=== PATIENT | female | born 1995 | race Caucasian/White ===

== ENCOUNTER 2022-03-21 10:19 | Outpatient (CLI) | payer OTHER ==
[2022-03-21 13:12] LABS: THYROID STIMULATING HORMONE 1.22 uIU/mL (0.34-5.60)
== END 2022-03-21 10:20 | disposition home or self-care (01) ==
LOC: LAB.N 10:19
PROVIDERS: ATTEND Nurse Practitioner Obstetrics & Gynecology
DX: E03.9 Hypothyroidism, unspecified (principal)
CPT/HCPCS: 36415; 84439; 84443

== ENCOUNTER 2022-05-16 11:03 | Outpatient (CLI) | payer OTHER ==
[2022-05-16 18:47] LABS: THYROID STIMULATING HORMONE 1.48 uIU/mL (0.34-5.60)
[2022-05-16 18:49] LABS: FREE T4 (FREE THYROXINE) 0.88 ng/dL (0.58-1.64)
[2022-05-18 20:08] LABS: AFP MOM 0.93 (.); AFP VALUE 33.5 ng/mL (.); DIA MOM 0.77 (.); DIA VALUE 130.3 pg/mL (.); DOWN SYNDROME Screening Risk: (.); GESTATIONAL AGE 10.7 weeks (.); GESTATIONAL AGE 16.1 weeks (.); GESTATIONAL AGE METHOD EDD (.); HCG MOM 0.84 (.); HCG VALUE 33.5 IU/mL (.); INSULIN DEP DIABETES No (.); MATERNAL AGE AT EDD 28.7 yr (.); NUMBER OF FETUSES 1 (.); OPEN SPINA BIFIDA Screening Risk: (.); PAPP-A MOM 2.34 (.); PAPP-A VALUE 1206.1 ng/mL (.); RACE Caucasian (.); TEST RESULTS *Screen Negative* (.); TRISOMY 18 Screening Risk: (.); UE3 MOM 0.91 (.); UE3 VALUE 0.92 ng/mL (.); WEIGHT 135 lbs (.)
== END 2022-05-16 11:04 | disposition home or self-care (01) ==
LOC: LAB.N 11:03
PROVIDERS: ATTEND Nurse Practitioner Obstetrics & Gynecology
DX: Z13.79 Encounter for other screening for genetic and chromosomal anomalies (principal)
CPT/HCPCS: 36415; 82105; 82677; 84439; 84443; 84702; 86336

== ENCOUNTER 2022-06-17 15:20 | Outpatient (CLI) | payer OTHER ==
--- NOTE | 2022-06-18 03:24 | Ultrasound Report ---
PROCEDURE: OB Detailed Eval INDICATIONS: SUPERVISION OF OUTSIDE/PRIOR DATING DATA: Last menstrual period (LMP): 01/23/2022. LMP-based estimated date of delivery (ANSELMO): 10/30/2022. First dating scan (date and location): 03/30/2022. Estimated date of delivery (ANSELMO) from first dating scan: 10/30/2022. The below data below was generated using the working ANSELMO of 10/30/2022 TECHNIQUE: Real-time scanning was performed of the fetus, with image documentation and biometric measurements. COMPARISON: None available. FINDINGS: General: A single living intrauterine gestation is present. Presentation: Breech Placenta: Placental position is anterior with the inferior margin approximately 1 cm from the internet technology manager al cervical os compatible with a low-lying placenta. Amniotic fluid index: 15.2 cm, 60th percentile for gestational age. Largest pocket: 4.6 cm. heart rate: heart motion demonstrated with heart rate not obtained. Maternal cervical canal: 4.3 cm long; normal length is 2.5 cm or more. No endocervical fluid identi fied. biometrics: Biparietal diameter: 4.5 cm, 19 weeks 5 days Head circumference: 17.3 cm, 19 weeks 6 days Abdominal circumference: 16.1 cm, 21 weeks 1 day Femur length: 3.1 cm, 19 weeks 4 days Estimated gestational age from initial scan: 20 weeks 1 day. Composite gestational age from present scan: 20 weeks 0 days Estimated weight and percentile: 15 48 g, 57th percentile Measurement variability in biometric dating: +/- 10 days from 12-20 weeks gestation, +/- 2 weeks from 20-30 weeks gestation, +/- 3 weeks at 30 weeks gestation or later. Anatomic survey: Neuro: Ventricles are normal at less than 10 mm. Cisterna magna is normal at 3-11 mm. Cerebellum i s normal in size and morphology. Nuchal skin fold: Normal at less than 6 mm between 14 and 20 weeks gestational age. Face: Nose and lips, facial profile are normal. Spine: No evidence for spina bifida. Heart: 4-chambered heart is present, with normal ventricular outflow tracts. Diaphragm: Diaphragm is intact. Stomach: Left-sided stomach is present. Kidneys: No hydronephrosis. Normal is less than 5 mm in 2nd trimester, less than 7 mm in 3rd trimester. Cord: 3 vessel cord has orthotopic insertion. Bladder: Normal in size. Extremities: All 4 extremities are visualized. IMPRESSION: 1. Single living intrauterine demonstrating interval growth with estimated weight at the 57th percentile. 2. No definite abnormalities identified on anatomic survey. 3. heart rate not documented at time of examination. If clinically indicated, a repeat study ma y be performed. Reviewed by: Dante Joseph MD on 06/18/2022 3:23 AM PST Approved by: Dante Joseph MD on 06/18/2022 3:23 AM PST Station ID: [id number]
== END 2022-06-17 15:21 | disposition home or self-care (01) ==
LOC: DI 15:20
PROVIDERS: ATTEND Nurse Practitioner Obstetrics & Gynecology
DX: Z34.02 Encounter for supervision of normal first pregnancy, second trimester (principal); Z36.89 Encounter for other specified antenatal screening

== ENCOUNTER 2022-06-18 14:34 | Outpatient (CLI) | payer OTHER ==
[2022-06-18 19:37] LABS: FREE T3 3.24 pg/mL (2.5-3.9); THYROID STIMULATING HORMONE 0.69 uIU/mL (0.34-5.60)
[2022-06-18 19:38] LABS: FREE T4 (FREE THYROXINE) 0.89 ng/dL (0.58-1.64)
[2022-06-22 10:08] LABS: AFP MOM 1.03 (.); AFP VALUE 68.8 ng/mL (.); DIA MOM 0.54 (.); DIA VALUE 119.4 pg/mL (.); DOWN SYNDROME Screening Risk: (.); GESTATIONAL AGE 10.7 weeks (.); GESTATIONAL AGE 20.9 weeks (.); GESTATIONAL AGE METHOD EDD (.); HCG VALUE 14.8 IU/mL (.); INSULIN DEP DIABETES No (.); MATERNAL AGE AT EDD 28.7 yr (.); NUMBER OF FETUSES 1 (.); OPEN SPINA BIFIDA Screening Risk: (.); PAPP-A MOM 2.34 (.); PAPP-A VALUE 1206.1 ng/mL (.); RACE Caucasian (.); TEST RESULTS *Screen Negative* (.); TRISOMY 18 Screening Risk: (.); UE3 MOM 0.92 (.); UE3 VALUE 2.58 ng/mL (.); WEIGHT 135 lbs (.)
== END 2022-06-18 14:35 | disposition home or self-care (01) ==
LOC: LAB.N 14:34
PROVIDERS: ATTEND Nurse Practitioner Obstetrics & Gynecology
DX: Z13.79 Encounter for other screening for genetic and chromosomal anomalies (principal)
CPT/HCPCS: 36415; 82105; 82677; 84439; 84443; 84481; 84702; 86336

== ENCOUNTER 2022-07-11 19:56 | Outpatient (CLI) | payer OTHER ==
[2022-07-11] MEDS ORDERED: SODIUM CHLORIDE FLUSH 0.9% 10 ML SYRINGE IVP PRN (20:06)
[2022-07-11] MEDS ORDERED: LACTATED RINGERS 1,000 ML IV ONE (21:00)
[2022-07-11 21:54] LABS: BILIRUBIN,URINE NEGATIVE (NEGATIVE); GLUCOSE, URINE (UA) NEGATIVE (NEGATIVE); KETONES,URINE (UA) NEGATIVE (NEGATIVE); LEUKOCYTE ESTERASE, URINE NEGATIVE (NEGATIVE); NITRITE,URINE NEGATIVE (NEGATIVE); OCCULT BLOOD,URINE NEGATIVE (NEGATIVE); PROTEIN,URINE NEGATIVE (NEGATIVE); UROBILINOGEN,URINE 0.2 (NORMAL) E.U./dL (NORMAL)
[2022-07-11 21:58] VITALS: BP 119/75
[2022-07-11 22:07] LABS: AMORPHOUS SEDIMENT,UR Few /LPF; BACTERIA,URINE None Seen /HPF (None Seen); CLARITY,URINE HAZY (CLEAR); MUCUS,URINE Few Strands; RBC,URINE None Seen /HPF (0-5); SQUAMOUS EPITHELIAL CELL,UR MANY Squamous (<= Few); WBC,URINE 0-3 /HPF (0-5)
--- NOTE | 2022-07-12 11:24 | PROVIDER PROGRESS NOTE ---
- HPI Chief Complaint: GI symptoms Current : Vital Signs Temperature 37.1 C 07/11/22 20:29 Heart Rate 70 07/11/22 20:29 Respiratory Rate 14 07/11/22 20:29 Blood Pressure 131/80 H 07/11/22 20:29 Temperature 36.8 C 07/11/22 21:57 Heart Rate 66 07/11/22 21:57 Respiratory Rate 14 07/11/22 21:57 Blood Pressure 119/75 07/11/22 21:57 O2 Saturation 100 07/11/22 21:57 If not protocol: Oxygen Flow, liters/minute - Plan Plan: April presents today with concerns for stomach cramping and dehydration. She reports her son was sick and brought something home. She had diarrhea for 24 hours yesterday but has had normal BMs today. She did experience vomiting but has not vomited today. She feels like she has been unable to drink enough fluids because it seems to upset her stomach more when she drinks water. She has eaten small amount of food throughout the day today. She had pizza this evening because she felt like it sounded good and her cramping got much worse. She denies urinary symptoms. She states the cramping does not feel the same as contractions as there is not a start and stop to them, rather there seems to be constant aching and cramping with irritable bowels. She denies dysuria, hematuria, frequency or urgency. She states she had very little urine output yesterday overall. She feels like today has been a little better but does feel her urine looks concentrated and seems a bit cloudy but denies foul odor. She denies vaginal bleeding or leaking and reports +FM. Heart RRR w/o M/G/R, lungs CTAB, abdomen gravid, soft, nontender with hyperactive bowel tones x 4, no CVA tenderness noted. Bilateral LE's no edema. FHR via doppler 140s-150s. UA collected - negative A/P: 1 liter LR via IV over 1 hour completed. Rx for Reglan sent to her preferred pharmacy to use PRN to increase her fluid intake. Reviewed warning s/sx and when to present. Pt released home with precautions. FINAL DIAGNOSIS: Acute dehydration Gastroenteritis
== END 2022-07-11 22:15 | disposition home or self-care (01) ==
LOC: WFO 19:56 → FBP 20:01 → WFO 22:15
PROVIDERS: ATTEND Nurse Practitioner Obstetrics & Gynecology
DX: O99.280 Endocrine, nutritional and metabolic diseases complicating pregnancy, unspecified trimester (principal); E86.0 Dehydration; O99.619 Diseases of the digestive system complicating pregnancy, unspecified trimester; K52.9 Noninfective gastroenteritis and colitis, unspecified; Z3A.00 Weeks of gestation of pregnancy not specified
CPT/HCPCS: 81001; 96360; 99213; J7120; 87086; 99214

== ENCOUNTER 2022-08-19 10:02 | Outpatient (CLI) | payer OTHER ==
[2022-08-19 11:21] LABS: HCT - HEMATOCRIT 34.3 % (37.0-47.0); HGB - HEMOGLOBIN 11.3 g/dL (12.0-16.0); MEAN CORPUSCULAR HEMOGLOBIN 31.3 pg (27.0-31.0); MEAN CORPUSCULAR HGB CONC 32.9 g/dL (32.0-36.0); MEAN PLATELET VOLUME 10.4 fL (7.9-10.8); RED BLOOD COUNT 3.61 10^6/uL (4.20-5.40); RED CELL DISTRIBUTION WIDTH 13.1 % (12.0-15.0); WHITE BLOOD COUNT 7.3 x10^3/uL (4.8-10.8)
[2022-08-19 11:59] LABS: THYROID STIMULATING HORMONE 0.63 uIU/mL (0.34-5.60)
[2022-08-19 12:01] LABS: FREE T4 (FREE THYROXINE) 0.84 ng/dL (0.58-1.64)
== END 2022-08-19 10:03 | disposition home or self-care (01) ==
LOC: LAB 10:02
PROVIDERS: ATTEND Nurse Practitioner Obstetrics & Gynecology
DX: Z36.0 Encounter for antenatal screening for chromosomal anomalies (principal); Z36.9 Encounter for antenatal screening, unspecified
CPT/HCPCS: 36415; 82950; 84439; 84443; 85027; 86850; 86900; 86901

== ENCOUNTER 2022-09-27 07:01 | Outpatient (CLI) | payer OTHER ==
--- NOTE | 2022-09-27 10:40 | Ultrasound Report ---
PROCEDURE: OB F/U or Repeat INDICATIONS: LOW LYING PLACENTA OUTSIDE/PRIOR DATING DATA: Last menstrual period (LMP): 01/23/2022. LMP-based estimated date of delivery (ANSELMO): 10/30/2022. First dating scan (date and location): 03/30/2022 outside report available Estimated date of delivery (ANSELMO) from first dating scan: 10/30/2022. TECHNIQUE: Real-time scanning was performed of the fetus, with image documentation. Endovaginal scanning: Not performed COMPARISON: 06/17/2022 FINDINGS: General: A single living intrauterine gestation is present. Presentation: Breech Placenta: Placental position is anterior, without previa. Amniotic fluid index: 19 cm, 78th percentile for gestational age. heart rate: 148 beats per minute. Maternal cervical canal: 3.8 cm long; normal length is 2.5 cm or more. Gestational age today is 35 weeks and 2 days. Other: Not applicable. IMPRESSION: Intrauterine living gestation with heart rate 143 bpm at clinical age of 35 weeks and 2 days. Estimated date of delivery is 10/30/2022. No previa or low-lying placenta noted. Cervix to placental distance is 7.9 cm. Breech presentation. Reviewed by: Pardeep Alan MD on 09/27/2022 10:38 AM PDT Approved by: Pardeep Alan MD on 09/27/2022 10:38 AM PDT Station ID: [id number]
== END 2022-09-27 07:02 | disposition home or self-care (01) ==
LOC: DI 07:01
PROVIDERS: ATTEND Nurse Practitioner Obstetrics & Gynecology
DX: O44.43 Low lying placenta NOS or without hemorrhage, third trimester (principal); O32.1XX0 Maternal care for breech presentation, not applicable or unspecified

== ENCOUNTER 2022-11-06 11:22 | Inpatient (IN) | payer OTHER ==
[2022-11-06 12:14] LABS: RUPTURE OF MEMBRANES PLUS POSITIVE (NEGATIVE)
[2022-11-06] MEDS ORDERED: LACTATED RINGERS 500 ML IV ONE ×2 (12:34→13:35)
[2022-11-06] MEDS ORDERED: fentaNYL 100 MCG/2 ML VIAL IVP PRN ×2 (12:34→13:35)
[2022-11-06] MEDS ORDERED: METHYLERGONOVINE 0.2 MG/ML VIAL IM PRN ×2 (12:34→13:35)
[2022-11-06] MEDS ORDERED: miSOPROStoL 200 MCG TABLET BC PRN ×2 (12:34→13:35)
[2022-11-06] MEDS ORDERED: hydrALAZINE INJ 20 MG/ML VIAL IVP PRN ×4 (12:34→13:35)
[2022-11-06] MEDS ORDERED: CARBOPROST TROMETHAMINE 250 MCG/ML AMP IM PRN ×2 (12:34→13:35)
[2022-11-06] MEDS ORDERED: LABETALOL 20 MG/4 ML SYRINGE IVP PRN ×6 (12:34→13:35)
[2022-11-06] MEDS ORDERED: SODIUM CHLORIDE FLUSH 0.9% 10 ML SYRINGE IVP PRN ×2 (12:34→13:35)
[2022-11-06] MEDS ORDERED: NIFEdipine 10 MG CAPSULE PO PRN ×2 (12:34→13:35)
[2022-11-06] MEDS ORDERED: OXYTOCIN 10 UNIT/ML VIAL IM PRN ×2 (12:34→13:35)
[2022-11-06] MEDS ORDERED: lidocaine 1% 20 ML MDV ID PRN ×2 (12:34→13:35)
[2022-11-06] MEDS ORDERED: TERBUTALINE 1 MG/ML VIAL SUBQ PRN ×2 (12:34→13:35)
[2022-11-06] MEDS ORDERED: OXYTOCIN/SODIUM CHLORIDE 500 ML IV PRN ×2 (12:34→13:35)
[2022-11-06] MEDS ORDERED: miSOPROStoL 200 MCG TABLET PR PRN ×2 (12:34→13:35)
[2022-11-06] MEDS ORDERED: TRANEXAMIC ACID IN NACL 1,000 MG/100 ML BAG IV PRN ×2 (12:34→13:35)
[2022-11-06] MEDS ORDERED: LACTATED RINGERS 1,000 ML IV SCH ×2 (13:00→14:00)
[2022-11-06] MEDS ORDERED: SODIUM CHLORIDE FLUSH 0.9% 10 ML SYRINGE IVP SCH ×2 (13:00→14:00)
--- NOTE | 2022-11-06 13:27 | HISTORY & PHYSICAL EXAMINATION ---
Admit History - Visit Reason Visit Reason: Membranes rupture - : 3 Parity: 2 Premature: 0 Ectopic: 0 : 0 Care: positive: [facility] Risk/History: positive: None Complications This : positive: None Smoking Status: Never smoker - Mother's Labs Mother's Blood Type: positive: A Mother's RH: positive: Positive GBS: positive: Group B Step Negative Rubella Status: positive: Immune Meds/Allgy - Allergies Allergies/Adverse Reactions: Allergies Allergy/AdvReac Type Severity Reaction Status Date / Time Penicillins Allergy Edema Verified 07/11/22 20:19 Review of Systems - Constitutional Constitutional: denies: Fatigue, Fever - Eyes Eyes: denies: Blurred vision, Spots in vision, Dipolpia - Cardiovascular Cariovascular: denies: Irregular heart rate, Palpitations, Chest pain, Edema - Respiratory Respiratory: denies: Cough, Wheezing, SOB at rest - Gastrointestinal Gastrointestinal: denies: Constipation, Diarrhea, Nausea, Vomiting - Genitourinary Genitourinary: denies: Dysuria - Integumentary Integumentary: denies: Rash, Pruritis - Neurological Neurological: denies: Headache - Psychiatric Psychiatric: denies: Depression, Anxiety Physical - Abdominal Exam Vital Signs: Temp Pulse Resp BP Pulse Ox O2 Flow Rate 36.7 C 79 16 119/72 99 11/06/22 11:53 11/06/22 11:53 11/06/22 11:53 11/06/22 11:53 11/06/22 11:53 Contraction Intensity: positive: Mild Uterine Resting Tone: positive: Soft - Monitoring Heart Rate Baseline: 140s Strip Review: positive: Category I - Presentation Presentation: positive: Vertex - Vaginal Exam Membranes: positive: Membranes ruptured Dilation (in cm): 3 Effacement (%): 60 Station: positive: -3 Cervical Position: positive: Posterior - Speculum Exam Speculum Exam Performed: positive: No Findings: positive: Other Plan for Labor - Plan For Labor I expect patient to be DC'd or transferred within 96 hours.: Yes Plan for Labor: HPI: Dolores is a 27yo @ 41.0wks gestation by LMP c/w 8.6wk U/S who presented to [facility] with c/o vaginal leakage of fluid. She reports she first noticed a small amount of pink-gerson discharge yesterday ( at approximately 0930am. She states the leaking increased in amount at midnight and has continued. She reports intermittent contractions but states they do not feel overly uncomfortable or consistent. She reports +FM and denies vaginal bleeding. Upon arrival to [facility] her ROM+ returned positive. She was found to contract mildly every 5-7 minutes with soft resting tone. FHR baseline 140s, moderate variability, + accels, no decels. SVE 3/60/-3, posterior, vertex. She has been a patient of [facility] for the duration of her which has remained uncomplicated with the exception of low lying placenta on FAS which resolved on follow up. She will be admitted to [facility] for active management. She is supported by her Mario. Dating criteria: LMP 01/23/2022 ANSELMO by LMP 10/30/2022 Initial U/S @ 8.6wks c/w LMP dating Serial exams - agree paper supervisor Hx: Term NSVB x 2. SAB x0. Last pap 10/2020-WNL, No hx of abnormals. Medical Hx: Hypothyroidism, Anxiety/depression-mild Surgical Hx: none Family Hx: Thyroid disease - mother, father, sister, PGM; Breast cancer - MGM; Heart disease - Father, PGF; HTN - PGF; Lung disease- MGM, MGF; Lung cancer - MGF; Anxiety - Father; Diabetes - Type 1 sister. Genetic Hx: Nephew (sister's son) has congenital heart disease Meds: PNV, Levothyroxine 175mcg PO once daily Allergies: Penicillin Social: , lives with Mario who is active duty [employer]. 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 No tobacco, ETOH or recreational drug use. Caffeine intake -minimal course: A positive, antibody negative Rubella immune; varicella immune COVID vaccine x 3 NIPS - negative FAS WNL with the exception of low lying placenta (1cm from internal os), 3VC, Size c/w dating (EFW 57%tile) Glucola 73 F/u FAS WNL. No previa or low-lying placenta. Placenta 7.9cm from cervical os. GBS negative Physical exam: Normocephalic, atraumatic Heart RRR w/o M/G/R Lungs CTAB Abdomen gravid, soft, nontender EFW 3800g FHR baseline 140s, moderate variability, + accels, no decels Contractions palpate mild every 5-7 minutes with soft resting tone SVE 3/60/-3, posterior, soft, vertex ROM+ positive Bilateral LE's no edema Assessment: 27yo @ 41.0wks gestation by LMP c/w 8.6wk U/S Prolonged rupture of membranes Initiate pitocin for augmentation of labor with titration per protocol Continuous monitoring Encouraged ambulation and position changes. Jacuzzi PRN. Nitrous oxide PRN. Anticipate .
[2022-11-06] MEDS: OXYTOCIN/SODIUM CHLORIDE 500 ML IV SCH (13:48)
[2022-11-06 13:55] LABS: BASOPHILS % (AUTO) 0.5 %; EOSINOPHILS % (AUTO) 0.7 %; HCT - HEMATOCRIT 31.8 % (37.0-47.0); HGB - HEMOGLOBIN 10.2 g/dL (12.0-16.0); LYMPHOCYTES # (AUTO) 1.7 10^3/uL (1.5-3.5); LYMPHOCYTES % (AUTO) 29.2 %; MEAN CORPUSCULAR HEMOGLOBIN 27.6 pg (27.0-31.0); MEAN CORPUSCULAR HGB CONC 32.1 g/dL (32.0-36.0); MEAN CORPUSCULAR VOLUME 86.2 fL (81.0-99.0); MEAN PLATELET VOLUME 11.7 fL (7.9-10.8); MONOCYTES # (AUTO) 0.7 10^3/uL (0.0-1.0); MONOCYTES % (AUTO) 11.7 %; NEUTROPHILS # (AUTO) 3.4 10^3/uL (1.5-6.6); NEUTROPHILS % (AUTO) 57.7 %; PLT - PLATELET COUNT 177 10^3/uL (130-450); RED BLOOD COUNT 3.69 10^6/uL (4.20-5.40); RED CELL DISTRIBUTION WIDTH 14.2 % (12.0-15.0); WHITE BLOOD COUNT 5.8 x10^3/uL (4.8-10.8)
--- NOTE | 2022-11-06 20:28 | PROVIDER PROGRESS NOTE ---
Labor Progress Note - Uterine Monitoring Uterine Monitoring Mode: positive: External toco Contraction Frequency (min/apart): 2-3 Contraction Intensity: positive: Strong Uterine Resting Tone: positive: Soft - Monitoring Monitor Mode: positive: External ultrasound Heart Rate Baseline: 120 Heart Rate Variability: positive: Moderate (6-25 bmp) Accelerations: positive: Present, 15x15 Decelerations: positive: None Strip Review: positive: Category I - Vaginal Exam Dilation (in cm): 6 Effacement (%): 80 Station: -1 Cervical Position: Midposition - Labor Progress Note Labor Progress Note/Additional Text: S: Breathing through contractions. Starting to feel increased pressure at the peak of contractions. She is coping well. Her is supportive at the bedside. O: FHR baseline 120s, moderate variability, + accels, no decels Contractions palpate strong every 2-3 minutes with soft resting tone SVE 6/80/-1, vertex Forebag amniotic fluid released with a moderate amount of clear fluid Pitocin @ 5mU/mL A: 27yo @ 41.0wks gestation by LMP c/w 8.6wk U/S Active labor GBS neg FHR Category I Prolonged rupture of membranes P: Continuous monitoring. Continue pitocinfor labor augmentation with titration per protocol. Encouraged ambulation and position changes. Nitrous oxide PRN. Jacuzzi PRN. Anticipate .
[2022-11-06] MEDS ORDERED: WITCH HAZEL/GLYCERIN 1 PAD TOP PRN (21:15)
[2022-11-06] MEDS ORDERED: HYDROCORTISONE 1% CREAM 28 GM TUBE PR PRN (21:15)
--- NOTE | 2022-11-06 21:30 | DELIVERY NOTE ---
Delivery Note - Labor Labor: positive: Induced by oxytocin - Infant Delivery Method Delivery Method: positive: Spontaneous vaginal delivery - Presentation Presentation: positive: Vertex, ARIES - left occiput anterior - Nuchal Cord Nuchal Cord: positive: Present, Reduced - Amniotic Fluid Description Amniotic Fluid Description: positive: Clear - Episiotomy Type Episiotomy Type: positive: None - Laceration Laceration: positive: None - Delivery Outcome Delivery Outcome: positive: Livebirth - [place]brook Hol[place]: positive: Placed in direct skin contact with mother, Bulb syringe, Stimulated, Warmed, [place] used sex: positive: Female - Cord Cord: positive: 3 vessels - Placenta Placenta: positive: Intact, Spontaneous - Estimated Blood Loss Estimated Blood Loss (in cc): 300 - Delivery Comments (Free Text/Narrative) Delivery Comments (Free Text/Narrative): Labor: This 27yo @ 41.0wks gestation by LMP c/w 8.6wk U/S who presented on 11/06/2022 @ approximately 1130 with c/o vaginal leakage of fluid. She was found to contract eery 5-7 minutes with soft resting tone. ROM+ was positive. SVE 3/60/-3, posterior and vertex. FHR pattern demonstrated Category I pattern throughout labor. Pitocin initiation for induction of labor with maximum infusion rate of 5mU/mL. Normal labor course. Pt progressed to c/c/+2 @ 2046 with onset of active pushing at 2048. : Normal SVB of viable female on 11/06/20222052. Patient was in hands and knees position at time of . Nuchal cord x 1 was easily reduced. Posterior arm reduced with delivery of occurring 40 seconds after head. The was placed on maternal chest, stimulated, dried, and placed skin to skin. Apgars were 8/9 at 1 and 5 minutes respectively. Pitocin administered via IV for hemostasis. The umbilical cord was allowed to stop pulsating at which time it was doubly clamped by CNM and cut by FOB. Cord blood was obtained. 3VC. Fundal massage and gentle cord traction applied for active management of the third stage. Placenta delivered spontaneously and intact at 2103. EBL 300mL. Fourth stage: Uterine fundus firm and there is no excessive bleeding. The perineum, vagina, and cervix were inspected and noted to be intact. Skin to skin contact initiated. Family bonding well. Both mother and baby were left in stable condition.
[2022-11-06] MEDS: ACETAMINOPHEN 500 MG TABLET PO SCH (23:34)
[2022-11-06] MEDS: IBUPROFEN 800 MG TABLET PO SCH (23:34)
[2022-11-07] MEDS: IBUPROFEN 800 MG TABLET PO SCH ×3 (05:27→19:17)
[2022-11-07] MEDS: LEVOTHYROXINE 100 MCG TABLET PO SCH (06:55)
[2022-11-07] MEDS: ACETAMINOPHEN 500 MG TABLET PO SCH ×2 (09:15→17:06)
[2022-11-07] MEDS: DOCUSATE SODIUM 100 MG CAPSULE PO SCH ×2 (09:15→22:08)
--- NOTE | 2022-11-07 12:37 | PROVIDER PROGRESS NOTE ---
Subjective - Subjective Subjective: S: Bonding well with baby. She is without difficulty or pain. Her bleeding is decreased and is light. Her pain is well controlled with oral medications. She experiences moderate cramping with nursing but otherwise denies discomfort. She was able to nap some this morning. O: Heart RRR w/o M/G/R, lungs CTAB, abdomen soft and nontender with fundus firm at U, perineum intact, light lochia rubra, bilateral LE's no edema. A: 27yo -->P3 PPD#1 s/p TSVB viable female Normal recovery P: Continue routine pp care and medications. Evaluate for discharge home tomorrow. Objective - Vital Signs/Intake & Output Vital Signs: Vital Signs x48h Temp Pulse Resp BP Pulse Ox 11/07/22 12:20 36.3 C L 78 20 109/67 99 11/07/22 09:32 36.6 C 70 16 114/56 L 100 11/07/22 05:00 36.9 C 70 18 114/64 100 Intake & Output: Intake & Output 11/04/22 11/05/22 11/06/22 11/07/22 23:59 23:59 23:59 23:59 Intake Total 500.000 Output Total 301 350 Balance 199.000 -350 - Lab Results Fish Bones: 11/06/22 13:36 Other Labs: Lab Results x24hrs 11/06/22 11/06/22 Range/Units 13:36 13:36 WBC 5.8 (4.8-10.8) x10^3/uL RBC 3.69 L (4.20-5.40) 10^6/uL Hgb 10.2 L (12.0-16.0) g/dL Hct 31.8 L (37.0-47.0) % MCV 86.2 (81.0-99.0) fL MCH 27.6 (27.0-31.0) pg MCHC 32.1 (32.0-36.0) g/dL RDW 14.2 (12.0-15.0) % Plt Count 177 (130-450) 10^3/uL MPV 11.7 H (7.9-10.8) fL Neut # (Auto) 3.4 (1.5-6.6) 10^3/uL Lymph # (Auto) 1.7 (1.5-3.5) 10^3/uL Stewart # (Auto) 0.7 (0.0-1.0) 10^3/uL Eos # (Auto) 0.0 (0.0-0.7) 10^3/uL Baso # (Auto) 0.0 (0.0-0.1) 10^3/uL Absolute Nucleated RBC 0.00 x10^3/uL Nucleated RBC % 0.0 /100WBC Blood Type A POSITIVE Antibody Screen NEGATIVE
[2022-11-07] MEDS: OXYTOCIN/SODIUM CHLORIDE 500 ML IV SCH (13:00)
[2022-11-08] MEDS: ACETAMINOPHEN 500 MG TABLET PO SCH ×2 (01:33→10:28)
[2022-11-08] MEDS: IBUPROFEN 800 MG TABLET PO SCH ×3 (01:34→11:21)
[2022-11-08] MEDS: LEVOTHYROXINE 100 MCG TABLET PO SCH (06:52)
[2022-11-08 07:56] VITALS: BP 115/66
[2022-11-08] MEDS: DOCUSATE SODIUM 100 MG CAPSULE PO SCH (08:43)
--- NOTE | 2022-11-08 11:23 | Labor Flowsheet ---
Labor Flowsheet Datetime Report Generated by CPN: 11/08/2022 11:23 Datetime: 11/08/2022 07:54 VITAL SIGNS NBP Sys/Svetlana/Mean (mmHg): 115 : 66 : 78 Pulse: 57 Datetime: 11/07/2022 19:34 SpO2 (%): 99 Datetime: 11/06/2022 23:54 Membranes Ruptured Date/Time: 11/05/2022 09:00 Amniotic Fluid Amount: Moderate Datetime: 11/06/2022 23:00 Respirations: 16 Temperature (C): 36.7 Temperature Route: Oral PAIN Pain Scale: 0 Pain Presence: None/Denies Pain Type: N/A Datetime: 11/06/2022 21:18 Stage of : Recovery Pain Location: Back Datetime: 11/06/2022 21:01 LaborFlag: Labor Datetime: 11/06/2022 20:53 STAGE 2 Pushing: Coached on Pushing; Urge to Push Pushing Position: Pushing with Contractions Pushing Progress: Descent with Pushing; Perineal Bulging; Rectal Bulging; Presenting Part Visible; with Pushing; Pushing Effectively with Contractions Stage 2 Comments: , viable female, 40sec from head to body delivery; delivered in hands/knees po sition Datetime: 11/06/2022 20:52 FHR Baseline Rate : 127 Datetime: 11/06/2022 20:50 FHR Baseline Changes: No Baseline Change Variability: Moderate 6-25 bpm Accelerations: 15X15 Decelerations: Variable Actions for Decelerations: Hands and Knees Category: Category II Comments: Pushing with UCs Datetime: 11/06/2022 20:47 VAGINAL EXAM Dilatation (cm): 10.0 Effacement (%): 100 Station: 2 Exam by: Aviva TEACHING Instructional Method: Verbal; Patient Instructed; Family/Support Person Instructed; Verbalized Unde rstanding Plan of Care: Vaginal Delivery Labor/Induction: Pushing Methods Datetime: 11/06/2022 20:46 MEDICATIONS Pitocin (milliunits): Decreased to @ 4.5 Datetime: 11/06/2022 20:45 UTERINE ACTIVITY Monitor Mode: External Frequency (min): 1.5-2 Quality: Strong Duration (sec): 70-100 Pattern: Normal: <= 5 Contractions in 10 Minutes Resting Tone (Palpate): Relaxed Patient Position/Activity: Hands-Knees Datetime: 11/06/2022 20:36 Vaginal Bleeding: Normal Show Cervix, Consistency: Soft Cervix, Position: Anterior Datetime: 11/06/2022 20:30 Pitocin Checklist: At Least 1 Acceleration of 15 bpm x 15 Seconds in 30 Minutes or Adequate Variabi lity; No More than 1 Late Deceleration Occurred in Past 30 Minutes; No More than 2 Variable Decelerat ions > 60 Seconds in Duration and decreasing >60 bpm in 30 minutes; No More than 5 Uterine Contractio ns in 10 Minutes for any 20 Minute Interval; Uterus Palpates Soft between Contractions Datetime: 11/06/2022 20:15 Pain Relief Measures: Comfort Measures Pain Coping: Breathing Through Contractions Pain Assessment Comments: Continues to use Nitrous oxide Comfort Measures: Breathing/Relaxation; Coaching; Family Support Datetime: 11/06/2022 19:59 ASSESSMENT A Monitor Mode: Telemetry Datetime: 11/06/2022 19:36 Medication Comments: Nitrous oxide admn explained, risks, benefits. Pt agreeable. Datetime: 11/06/2022 19:08 Provider Reviewed Strip: Yes COMMUNICATION Communication: Provider at Bedside Provider Notified (Name): CNM Aviva Communication Comments: Provider at bedside coaching pt; pt feeling pressure Datetime: 11/06/2022 19:02 Amniotic Fluid Color: Clear Amniotic Fluid Odor: Normal Pool: Positive Membrane Comments: prolonged SROM, MATERNAL ASSESSMENT Level of Consciousness: Alert Headache: Denies Breath Sounds, Left: Clear and Equal Breath Sounds, Right: Clear and Equal Nausea/Vomiting: Denies RUQ Epigastric Pain: Denies ANESTHESIA Anesthesia Plans: None Unit Routine: Unit Personnel; Safety/Fall Risk Prevention Pain Management: Pain Scale/Goals; Comfort Measures Notification Reason: Status Update; Status; Labor Status; Membrane Status; Uterine Activity; Pain Datetime: 11/06/2022 18:52 Membrane Status: Ruptured Membranes Rupture Method: Artificial Datetime: 11/06/2022 18:45 Contraction Comments: ctx more then 5 in ten minutes. provider aware. wctm. provider at bedside Oxygen Method: Room Air Datetime: 11/06/2022 18:32 I/O Interventions: Up to BR Datetime: 11/06/2022 18:00 Monitor Interventions for UA: [place] Adjusted Datetime: 11/06/2022 16:34 Patient Care Comments: spinning baby position done. pt tolerated well Datetime: 11/06/2022 13:50 PATIENT CARE IV/Blood Work: IV Infusing per Order
--- NOTE | 2022-11-08 13:14 | Discharge Plan ---
Discharge Plan Problem Reviewed?: Yes Disposition: Home, Self Care Condition: Good Diet: Regular Activity Restrictions: No Restrictions Driving Restrictions: No Weight Bearing: Full Weight Instruction Topics: Vaginal After No Smoking: If you smoke, Please STOP! Call for help. Follow-up with: Meera Chicas CNM, ARNP [Provider Admit Priv/Credential] - 1 Week
--- NOTE | 2022-11-08 13:23 | DISCHARGE SUMMARY ---
Discharge Summary Condition at Discharge: Good Discharge Disposition: 01 Home, Self Care - HOSPITAL COURSE Hospital Course: Date of Admission: 11/06/2022 Date of discharge: 11/08/2022 Diagnosis on Admission: 1. 27yo @ 41.0wks gestation by LMP c/w 8.6wk U/S 2. Prolonged rupture of membranes 3. Postdates 4. FHR Category I 5. GBS neg Diagnosis on Discharge: 1. 27yo PPD#2 s/p TSVB viable female infant 2. 3. Normal recovery Brief History: She is a patient of [facility] who presnted on 11/06/2022 with co vaginal leakage of clear fluid. Her ROM+ was positive indicated prolonged rupture of membranes and she was admitted for active management. Pitocin was initiated for induction of labor with a maximum infusion rate of 5mU/mL. She progressed to spontaneously deliver a viable female infant on 11/06/2022 @ 2052 over intact perineum and following a 40 second shoulder dystocia. Apgars were 8/9 at 1 and 5 minutes respectively. EBL 300mL. She has been doing well in her course. She is ambulating and tolerating a regular diet. She is urinating without difficulty and her lochia is normal. Her pain is well controlled with oral medications. She is without difficulty and she is bonding well with her baby. She will be discharged home today on day #2 with instructions to continue taking her vitamin while and to continue taking ibuprofen and tylenol over the counter as needed for pain management. She intends to follow up with myself at [facility] in 1 week or sooner if needed. She has been given precautions to call if she has any worsening fevers, chills, abdominal pain, increased vaginal bleeding or foul smelling vaginal lochia. Physical Exam: Normocephalic, atraumatic. Heart RRR w/o M/G/R, lungs CTAB, abdomen soft and nontender with fundus firm at U-1, perineum intact, light lochia rubra, bilateral LE's no edema. - ALLERGIES Allergies/Adverse Reactions: Allergies Allergy/AdvReac Type Severity Reaction Status Date / Time Penicillins Allergy Edema Verified 07/11/22 20:19 - LABS Result Diagrams: 11/06/22 13:36
--- NOTE | 2022-11-11 08:32 | PROCEDURE REPORT ---
- HPI Diagnosis/Indication for NST: Other Current EDU 10/30/22 Gestation 41 Weeks and 0 Days 3 Para 2 Vital Signs Temperature 36.7 C 11/06/22 11:47 Temperature 36.7 C 11/08/22 07:54 Heart Rate 57 L 11/08/22 07:54 Respiratory Rate 16 11/08/22 07:54 Blood Pressure 115/66 11/08/22 07:54 O2 Saturation 100 11/08/22 07:54 If not protocol: Oxygen Flow, liters/minute - NST Procedure NST Procedure Start Date 11/06/22 Start Time 11:39 Stop Time 12:21 Vibroacoustic Stimulation Used No Patient States Movement Yes - Results and Plan Findings/Impression: NST reactive. FHR baseline 140s, moderate variability, + accels, no decels Contractions palpate mild every 5-7 minutes with soft resting tone
== END 2022-11-08 11:11 | disposition home or self-care (01) | DRG 807 ==
LOC: WFO 11:22 → FBP 11:25 → WFO 12:33 → FBP 12:34
PROVIDERS: ADMIT Nurse Practitioner Obstetrics & Gynecology; ATTEND Nurse Practitioner Obstetrics & Gynecology
PROC: 10E0XZZ Delivery of Products of Conception, External Approach (ICD-10-PCS; principal; 2022-11-06)
PROC: 3E033VJ Introduction of Other Hormone into Peripheral Vein, Percutaneous Approach (ICD-10-PCS; 2022-11-06)
DX: O42.12 Full-term premature rupture of membranes, onset of labor more than 24 hours following rupture (principal); Z37.0 Single live birth; Z3A.41 41 weeks gestation of pregnancy; O48.0 Post-term pregnancy; O66.0 Obstructed labor due to shoulder dystocia; O69.81X0 Labor and delivery complicated by cord around neck, without compression, not applicable or unspecified
CPT/HCPCS: 59025; 84112; 85025; 86850; 86900; 86901; 99215; A9270; J7120

== ENCOUNTER 2022-12-25 13:43 | Outpatient (CLI) | payer OTHER ==
[2022-12-25 14:24] LABS: THYROID STIMULATING HORMONE < 0.08 uIU/mL (0.34-5.60)
[2022-12-25 14:28] LABS: FREE T4 (FREE THYROXINE) 1.47 ng/dL (0.58-1.64)
== END 2022-12-25 13:44 | disposition home or self-care (01) ==
LOC: LAB 13:43
PROVIDERS: ATTEND Nurse Practitioner Obstetrics & Gynecology
DX: E03.9 Hypothyroidism, unspecified (principal)
CPT/HCPCS: 36415; 84439; 84443

== ENCOUNTER 2023-03-16 11:12 | Outpatient (CLI) | payer OTHER ==
[2023-03-16 11:58] LABS: THYROID STIMULATING HORMONE 0.03 uIU/mL (0.34-5.60)
== END 2023-03-16 11:13 | disposition home or self-care (01) ==
LOC: LAB 11:12
PROVIDERS: ATTEND Nurse Practitioner Obstetrics & Gynecology
DX: E03.9 Hypothyroidism, unspecified (principal)
CPT/HCPCS: 36415; 84439; 84443

== ENCOUNTER 2023-06-07 12:38 | Outpatient (CLI) | payer OTHER ==
[2023-06-07 13:24] LABS: THYROID STIMULATING HORMONE 1.76 uIU/mL (0.34-5.60)
== END 2023-06-07 12:39 | disposition home or self-care (01) ==
LOC: LAB 12:38
PROVIDERS: ATTEND Nurse Practitioner Obstetrics & Gynecology
DX: E03.9 Hypothyroidism, unspecified (principal)
CPT/HCPCS: 36415; 84439; 84443

== ENCOUNTER 2023-08-25 08:59 | Outpatient (CLI) | payer OTHER ==
[2023-08-25 09:13] LABS: EOSINOPHILS # (AUTO) 0.1 10^3/uL (0.0-0.7); EOSINOPHILS % (AUTO) 1.5 %; HCT - HEMATOCRIT 42.9 % (37.0-47.0); HGB - HEMOGLOBIN 14.2 g/dL (12.0-16.0); LYMPHOCYTES # (AUTO) 2.1 10^3/uL (1.5-3.5); LYMPHOCYTES % (AUTO) 50.1 %; MEAN CORPUSCULAR HEMOGLOBIN 30.4 pg (27.0-31.0); MEAN CORPUSCULAR HGB CONC 33.1 g/dL (32.0-36.0); MEAN CORPUSCULAR VOLUME 91.9 fL (81.0-99.0); MEAN PLATELET VOLUME 9.9 fL (7.9-10.8); MONOCYTES # (AUTO) 0.4 10^3/uL (0.0-1.0); MONOCYTES % (AUTO) 9.9 %; NEUTROPHILS # (AUTO) 1.6 10^3/uL (1.5-6.6); NEUTROPHILS % (AUTO) 37.5 %; PLT - PLATELET COUNT 212 10^3/uL (130-450); RED BLOOD COUNT 4.67 10^6/uL (4.20-5.40); RED CELL DISTRIBUTION WIDTH 12.7 % (12.0-15.0); WHITE BLOOD COUNT 4.1 x10^3/uL (4.8-10.8)
[2023-08-25 09:31] LABS: ALBUMIN 4.7 g/dL (3.2-5.5); ALBUMIN/GLOBULIN RATIO 1.7 (1.0-2.2); ALKALINE PHOSPHATASE 71 IU/L (42-121); ALT ALANINE AMINOTRANSFERASE 19 IU/L (10-60); AST ASPARTATE AMINOTRANSFERASE 19 IU/L (10-42); BILIRUBIN,TOTAL 0.5 mg/dL (0.2-1.0); BUN - BLOOD UREA NITROGEN 13 mg/dL (6-20); CALCIUM 9.3 mg/dL (8.5-10.3); CARBON DIOXIDE - CO2 27 mmol/L (21-32); CHLORIDE 104 mmol/L (101-111); CHOL/HDL RATIO 3.7 (<4.4); CHOLESTEROL 209 mg/dL; CREATININE 0.7 mg/dL (0.6-1.3); GFR - MDRD 99 (>89); GLUCOSE 84 mg/dL (74-104); HDL CHOLESTEROL 57 mg/dL; LDL CHOLESTEROL,CALCULATED 130 mg/dL; LDL/HDL RATIO 2.3 (<4.4); SODIUM 136 mmol/L (135-145); TOTAL PROTEIN 7.5 g/dL (6.4-8.9); TRIGLYCERIDES 109 mg/dL (48-352); VLDL CHOLESTEROL 22 mg/dL
[2023-08-25 09:48] LABS: THYROID STIMULATING HORMONE 1.23 uIU/mL (0.34-5.60)
== END 2023-08-25 09:00 | disposition home or self-care (01) ==
LOC: LAB 08:59
PROVIDERS: ATTEND Physician Assistant
DX: E78.5 Hyperlipidemia, unspecified (principal); Z13.9 Encounter for screening, unspecified; E03.9 Hypothyroidism, unspecified
CPT/HCPCS: 36415; 80050; 80061; 82306; 83721; 84439; 84481

== ENCOUNTER 2023-08-30 09:07 | Emergency (ER) | payer OTHER ==
[2023-08-30 09:22] VITALS: BP 118/63; O2SAT 100
--- NOTE | 2023-08-30 09:44 | ED Physician Documentation ---
PD HPI LOWER EXT INJURY - Stated complaint Stated Complaint: LT FT TOE INJ - Chief complaint Chief Complaint: Ext Problem - History obtained from History obtained from: Patient - Additional information Additional information: Patient is a 28-year-old female presenting for evaluation of pain to the left fourth toe which has been ongoing for the past 2 weeks. Patient states that her daughter dropped a water bottle on it and landed directly on the fourth digit. She has been occasionally using nikki tape and well as ice and elevation. She is nursing so has not been taking as much ibuprofen or acetaminophen as she does not want to take much medication while nursing. She was unsure if she should still be having pain at this point so wanted to come for evaluation. Review of Systems Musculoskeletal: reports: Extremity pain PD PAST MEDICAL HISTORY - Past Medical History Past Medical History: No - Past Surgical History Past Surgical History: No - Present Medications Home Medications: Ambulatory Orders Medication Instructions Recorded Confirmed Levothyroxine [Synthroid] 100 mcg PO QDAC 08/30/23 08/30/23 - Allergies Allergies/Adverse Reactions: Allergies Allergy/AdvReac Type Severity Reaction Status Date / Time Penicillins Allergy Edema Verified 08/30/23 09:14 - Social History Does the pt smoke?: No Smoking Status: Never smoker PD ED PE NORMAL - General General: Alert and oriented X 3, No acute distress, Well developed/nourished - HEENT HEENT: Atraumatic - Neck Neck: Supple, no meningeal sign - Cardiac Cardiac: Strong equal pulses - Respiratory Respiratory: No respiratory distress - Extremities Extremities: Other (Tenderness to left fourth toe; Mild swelling to the toe, moves all digits, compartments of foot are soft, no tenderness to the rest of the foot) Results - Vitals Vitals: Vital Signs - 24 hr 08/30/23 09:12 Temperature 36.5 C Heart Rate 87 Respiratory 16 Rate Blood Pressure 118/63 O2 Saturation 100 PD Medical Decision Making - ED course Complexity details: reviewed results, d/w patient ED course: Patient presenting for evaluation of injury to left fourth toe. Neurovascularly intact. Mild tenderness noted to toe. X-ray was obtained which I reviewed I see a distal fracture of the fourth toe on the left. Reviewed this with the patient. Patient given a postop shoe as well as instructions for nikki tape. Counseled on continued supportive care as well as need for follow-up if symptoms or not improving. Departure - Departure Disposition: 01 Home, Self Care Clinical Impression: Toe fracture, left Condition: Stable Instructions: ED Fx Toe Closed Comments: Your x-ray shows a small fracture at the end portion of your left fourth toe. Please continue with nikki taping and using the postop shoe for comfort. Continue with acetaminophen or ibuprofen as needed for pain, elevation and ice as needed. If your symptoms or not improving over the next month and I would recommend follow-up with your primary care provider. Return to the ER with any worsening. Forms: PCP List Discharge Date/Time: 08/30/23 09:59
--- NOTE | 2023-08-30 09:47 | XRAY Report ---
PROCEDURE: Toe(s) 2+V LT INDICATIONS: 4th toe pain/injury TECHNIQUE: 3 views of the fourth toe(s) acquired. COMPARISON: None. FINDINGS: Bones: Linear lucency traverses the midportion of the distal phalanx of the fourth digit. No suspicio us bony lesions. Soft tissues: No suspicious soft tissue densities. IMPRESSION: Minimally displaced fourth digit fracture. Reviewed by: Gabo Hope MD on 08/30/2023 9:46 AM [facility] Approved by: Gabo Hope MD on 08/30/2023 9:46 AM PST Station ID: [id number]
== END 2023-08-30 09:59 | disposition home or self-care (01) ==
LOC: ED 09:07
DX: S92.532A Displaced fracture of distal phalanx of left lesser toe(s), initial encounter for closed fracture (principal); W20.8XXA Other cause of strike by thrown, projected or falling object, initial encounter
CPT/HCPCS: 73660; 99283